=== PATIENT | female | born 2000 | race Caucasian/White ===

== ENCOUNTER 2022-05-14 14:17 | Inpatient (IN) | payer BC ==
[~2022-05-14] VITALS: Ht 157.5 cm; Wt 51.7 kg
[2022-05-14 14:58] VITALS: BP_SYST 105
[2022-05-14 15:44] LABS: HEMATOCRIT 28.3 % (36-48); MEAN CORPUSCULAR HEMOGLOBIN 20 pg (27-31); MEAN CORPUSCULAR HGB CONC 32 % (32-36); MEAN CORPUSCULAR VOLUME 62 fL (79.0-98.0); PLATELET COUNT (AUTO) 463 K/uL (130-430); RED BLOOD CELL COUNT(AUTO) 4.53 MIL/uL (4.2-6.2); RED CELL DISTRIBUTION WIDTH 17.2 % (9.0-15.0); WHITE BLOOD COUNT (AUTO) 24.9 K/uL (4.5-11.0)
[2022-05-14 16:22] LABS: CALCIUM 8.7 mg/dL (8.4-11.0); CREATININE 0.47 mg/dL (0.55-1.30)
[2022-05-14 16:33] LABS: TOTAL BILIRUBIN 0.3 mg/dL (0.0-1.0)
[2022-05-14 17:22] LABS: BAND % (MANUAL) 11 % (0-6); BASOPHILS % (MANUAL) 0 % (0-2); EOSINOPHILS % (MANUAL) 0 % (0-7); LYMPHOCYTES % (MANUAL) 1 % (20-46); MONOCYTES % (MANUAL) 2 % (0-11)
[2022-05-14] MEDS ORDERED: PIPERACILLIN/TAZO 3.375 GM in NS 50 ML IV ONE (21:45)
[2022-05-14] MEDS ORDERED: PIPERACILLIN/TAZOBACTAM 3.375 GM/VIAL (ZOSYN) IV ONE (22:13)
[2022-05-15 01:58] LABS: STREPTOCOCCUS A SCREEN (RAPID) NEGATIVE (NEGATIVE)
[2022-05-15 12:49] LABS: BILIRUBIN,URINE NEGATIVE (NEGATIVE); COLOR,URINE YELLOW (YELLOW); GLUCOSE,URINE NEGATIVE (NEGATIVE); KETONES,URINE TRACE (NEGATIVE); LEUKOCYTE ESTERASE ,URINE TRACE (NEGATIVE); NITRITE, URINE NEGATIVE (NEGATIVE); PH,URINE 6.5 (5.0-8.0); PROTEIN URINE NEGATIVE (NEGATIVE); UROBILINOGEN,URINE 0.2 (0.2-1.0)
[2022-05-15 12:56] LABS: BLOOD, URINE TRACE (NEGATIVE); CLARITY/URINE SLIGHTLY HAZY (CLEAR)
[2022-05-15] MEDS ORDERED: HYDROcodone/ACETAMIN 5-325 MG TAB (NORCO/ VICODIN) PO PRN (13:30)
[2022-05-15] MEDS ORDERED: NALOXONE HCL 0.4 MG/ML AMP (NARCAN) IVP PRN ×2 (13:30)
[2022-05-15] MEDS ORDERED: HYDROcodone/ACETAMIN 10-325 MG TAB PO PRN (13:30)
[2022-05-15] MEDS ORDERED: LORazepam 2 MG/ML VIAL IVP PRN (13:30)
[2022-05-15] MEDS ORDERED: ACETAMINOPHEN 325 MG TABLET PO PRN (13:30)
[2022-05-15] MEDS ORDERED: ONDANSETRON HCL 4 MG/2 ML VIAL IVP PRN (13:30)
[2022-05-15 13:46] LABS: BACTERIA,URINE FEW /HPF (None Seen); RBC,URINE 0-3 /HPF (0-3); WBC,URINE 0-3 /HPF (0-3)
[2022-05-15] MEDS: NORMAL SALINE 5 ML DISP.SYRIN IVF SCH ×4 (14:00→21:17)
[2022-05-15 16:30] VITALS: BP_SYST 87
[2022-05-15] MEDS: PIPERACILLIN/TAZO 3.375/DEX-IS 50 ML IV SCH (19:37)
[2022-05-15 23:23] VITALS: BP_SYST 97
[2022-05-16] MEDS: PIPERACILLIN/TAZO 3.375/DEX-IS 50 ML IV SCH ×5 (00:29→23:58)
[2022-05-16 02:04] VITALS: BP_SYST 94
[2022-05-16 02:19] VITALS: BP_SYST 94
[2022-05-16 02:36] VITALS: BP_SYST 97
[2022-05-16] MEDS: NORMAL SALINE 5 ML DISP.SYRIN IVF SCH ×6 (06:06→23:57)
[2022-05-16 06:56] LABS: BASOPHILS % (AUTO) 0.2 % (0.0-2.0); EOSINOPHILS # (AUTO) 0.1 K/uL (0.0-0.4); EOSINOPHILS % (AUTO) 0.7 % (0.0-4.0); HEMATOCRIT 25.2 % (36-48); HEMOGLOBIN 8.2 g/dL (12.0-16.0); LYMPHOCYTES # (AUTO) 1.6 K/uL (1.0-5.5); LYMPHOCYTES % (AUTO) 15.4 % (20.5-51.5); MEAN CORPUSCULAR HEMOGLOBIN 20 pg (27-31); MEAN CORPUSCULAR HGB CONC 32 % (32-36); MEAN CORPUSCULAR VOLUME 63 fL (79.0-98.0); MONOCYTES # (AUTO) 0.9 K/uL (0.0-1.0); MONOCYTES % (AUTO) 8.3 % (1.7-9.3); NEUTROPHILS % (AUTO) 75.4 % (40.0-70.0); PLATELET COUNT (AUTO) 421 K/uL (130-430); RED BLOOD CELL COUNT(AUTO) 4.01 MIL/uL (4.2-6.2); RED CELL DISTRIBUTION WIDTH 17.5 % (9.0-15.0); WHITE BLOOD COUNT (AUTO) 10.6 K/uL (4.5-11.0)
[2022-05-16 07:52] LABS: CALCIUM 7.8 mg/dL (8.4-11.0); CREATININE 0.42 mg/dL (0.55-1.30); POTASSIUM 3.3 mmol/L (3.5-5.1)
[2022-05-16 08:00] VITALS: BP_SYST 91
[2022-05-16 08:06] LABS: HSV 1 IgG, TYPE SPECIFIC <0.91 index (0.00-0.90); HSV 2 IgG, TYPE SPECIFIC <0.91 index (0.00-0.90)
[2022-05-16 09:07] LABS: EBV AB VCA, IgM <36.0 U/mL (0.0-35.9)
[2022-05-16] MEDS ORDERED: PIPERACILLIN/TAZO 3.375/DEX-IS 50 ML IV ONE (12:30)
[2022-05-16 16:00] VITALS: BP_SYST 103
[2022-05-16 20:00] VITALS: BP_SYST 110
[2022-05-16] MEDS ORDERED: POTASSIUM CHLORIDE 20 MEQ TAB.PRT.SR PO ONE (23:00)
[2022-05-17] VITALS: BP_SYST 119
[2022-05-17] MEDS: PIPERACILLIN/TAZO 3.375/DEX-IS 50 ML IV SCH ×3 (05:25→18:50)
[2022-05-17] MEDS: NORMAL SALINE 5 ML DISP.SYRIN IVF SCH ×6 (05:25→21:03)
[2022-05-17 07:59] LABS: EOSINOPHILS % (AUTO) 0.1 % (0.0-4.0); HEMATOCRIT 27.4 % (36-48); HEMOGLOBIN 8.6 g/dL (12.0-16.0); LYMPHOCYTES # (AUTO) 1.1 K/uL (1.0-5.5); LYMPHOCYTES % (AUTO) 7.6 % (20.5-51.5); MEAN CORPUSCULAR HEMOGLOBIN 20 pg (27-31); MEAN CORPUSCULAR HGB CONC 31 % (32-36); MEAN CORPUSCULAR VOLUME 64 fL (79.0-98.0); MONOCYTES # (AUTO) 0.6 K/uL (0.0-1.0); MONOCYTES % (AUTO) 4.3 % (1.7-9.3); NEUTROPHILS # (AUTO) 12.6 K/uL (1.8-7.7); PLATELET COUNT (AUTO) 475 K/uL (130-430); RED BLOOD CELL COUNT(AUTO) 4.32 MIL/uL (4.2-6.2); RED CELL DISTRIBUTION WIDTH 17.9 % (9.0-15.0); WHITE BLOOD COUNT (AUTO) 14.3 K/uL (4.5-11.0)
[2022-05-17 08:11] VITALS: BP_SYST 107
[2022-05-17 08:15] LABS: C-REACTIVE PROTEIN QUANT 4.1 mg/dL (0-0.5); CREATININE 0.48 mg/dL (0.55-1.30); POTASSIUM 3.3 mmol/L (3.5-5.1)
[2022-05-17] MEDS ORDERED: PHENOL/ORAL ANESTHETIC 177 ML BOTTLE MM PRN (08:15)
[2022-05-17 11:00] LABS: ERYTHROCYTE SEDIMENTATION RATE 55 MM/HR (0-20)
[2022-05-17 17:01] VITALS: BP_SYST 114
[2022-05-17 20:23] VITALS: BP_SYST 99
[2022-05-18] MEDS: PIPERACILLIN/TAZO 3.375/DEX-IS 50 ML IV SCH ×3 (00:02→11:07)
[2022-05-18] MEDS: NORMAL SALINE 5 ML DISP.SYRIN IVF SCH ×3 (06:51→11:07)
[2022-05-18 08:06] LABS: BASOPHILS % (AUTO) 0.2 % (0.0-2.0); EOSINOPHILS % (AUTO) 0.2 % (0.0-4.0); HEMATOCRIT 32.2 % (36-48); LYMPHOCYTES # (AUTO) 1.1 K/uL (1.0-5.5); LYMPHOCYTES % (AUTO) 7.2 % (20.5-51.5); MEAN CORPUSCULAR HEMOGLOBIN 20 pg (27-31); MEAN CORPUSCULAR HGB CONC 31 % (32-36); MEAN CORPUSCULAR VOLUME 65 fL (79.0-98.0); MONOCYTES # (AUTO) 0.4 K/uL (0.0-1.0); MONOCYTES % (AUTO) 2.3 % (1.7-9.3); NEUTROPHILS # (AUTO) 14.1 K/uL (1.8-7.7); PLATELET COUNT (AUTO) 540 K/uL (130-430); RED BLOOD CELL COUNT(AUTO) 4.96 MIL/uL (4.2-6.2); WHITE BLOOD COUNT (AUTO) 15.6 K/uL (4.5-11.0)
[2022-05-18 08:20] LABS: C-REACTIVE PROTEIN QUANT 2.5 mg/dL (0-0.5); CALCIUM 8.6 mg/dL (8.4-11.0); CREATININE 0.54 mg/dL (0.55-1.30); POTASSIUM 4.4 mmol/L (3.5-5.1)
[2022-05-18 08:30] VITALS: BP_SYST 110
[2022-05-18] MEDS ORDERED: AUG875 PO (08:54)
[2022-05-18 09:17] LABS: NEUTROPHILS % (AUTO) 90.1 % (40.0-70.0)
[2022-05-18 10:36] VITALS: BP_SYST 110
[2022-05-18 11:57] LABS: ERYTHROCYTE SEDIMENTATION RATE 51 MM/HR (0-20)
[2022-05-18 15:06] LABS: CMV, IgG <0.60 U/mL (0.00-0.59)
[2022-05-19 08:06] LABS: HEPATITIS A AB, IgM Negative (Negative); HEPATITIS B CORE AB, IgM Negative (Negative); HEPATITIS B SURFACE AG Negative (Negative)
[2022-05-22 14:47] LABS: MYCOPLASMA PNEUMONIAE IgG 1413 U/mL (0-99)
== END 2022-05-18 12:09 | disposition home or self-care (01) | DRG 871 ==
LOC: SED 14:17 → SMU 23:13
PROVIDERS: ADMIT Preventive Medicine Preventive Medicine/Occupational Environmental Medicine; ATTEND Preventive Medicine Preventive Medicine/Occupational Environmental Medicine
DX: A41.9 Sepsis, unspecified organism (principal); E43 Unspecified severe protein-calorie malnutrition; J02.9 Acute pharyngitis, unspecified; K12.1 Other forms of stomatitis; Z20.822 Contact with and (suspected) exposure to COVID-19; D72.829 Elevated white blood cell count, unspecified; D64.9 Anemia, unspecified; Z68.20 Body mass index [BMI] 20.0-20.9, adult
CPT/HCPCS: 36415; 71045; 80048; 80053; 80074; 81000; 83605; 85007; 85025; 85027; 85651-TC; 86060; 86140; 86308-TC; 86403; 86644; 86665; 86695; 86696; 86738; 87040; 87081; 96365; 99285; J2543